=== PATIENT | female | born 1970 | race African-American/Black ===

== ENCOUNTER 2016-11-29 09:45 | Outpatient (CLI) | payer OTHER | END 2016-11-29 09:50 | disposition short-term general hospital (02) | LOC: AMB 09:45 | DX: R07.89 Other chest pain (principal) | CPT/HCPCS: A0425; A0427 ==

== ENCOUNTER 2016-11-29 09:52 | Emergency (ER) | payer OTHER ==
[~2016-11-29] VITALS: Ht 142.2 cm; Wt 79.4 kg
[2016-11-29 10:26] LABS: PLATELET COUNT 276 K/uL (152-353)
[2016-11-29 10:35] LABS: POTASSIUM 4.2 mmol/L (3.6-5.2); SODIUM 136 mmol/L (136-145)
== END 2016-11-29 12:01 | disposition home or self-care (01) ==
LOC: ED 09:52
PROVIDERS: Specialist
DX: R07.89 Other chest pain (principal); M54.12 Radiculopathy, cervical region; R00.1 Bradycardia, unspecified
CPT/HCPCS: 80053; 85027; 85379; 93005; 99284